=== PATIENT | male | born 1965 | race Caucasian/White ===

== ENCOUNTER 2022-12-20 09:36 | Day surgery (SDC) | payer OTHER, SELFPAY ==
--- NOTE | ~2022-12-20 | FL_ITS ---
PROCEDURE: XR LUMBAR PUNCTURE CLINICAL INFORMATION: Peripheral neuropathy. COMPARISON: None available. TECHNIQUE: Following explaining fluoroscopy-guided lumbar puncture procedure, benefits and risk, a written consent was obtained. Patient was placed prone on fluoroscopy table and an optimal site was selected and marked on the skin. The marked area was cleaned and draped with 2% chlorhexidine solution. 1% lidocaine was injected at puncture site. A 22-gauge spinal needle was then inserted from the skin intrathecally at the L4-L5 disc level. After observing fluid return, patient was quickly placed in left lateral decubitus view and opening CSF pressure was obtained. Subsequently approximately 9 mL clear CSF fluid was withdrawn. Postprocedure needle was withdrawn and complete hemostasis achieved at puncture site. Patient tolerated procedure extremely well. FINDINGS: On AP view of lumbar spine there is loss of disc height virtually at every disc level. The vertebral heights and alignment are maintained on the AP view. The opening CSF pressure measured 11 cm water. Approximately 9 mL of clear CSF fluid was collected in 4 test tubes and sent to lab as per referring physician's orders. FLUOROSCOPY TIME: 0.4 minutes DOSE AREA PRODUCT: 6.302 uGy-m2 (microgray-meter squared) FL/FL guided lumbar puncture LP IMPRESSION: Successful fluoroscopy-guided lumbar puncture performed.
[2022-12-20 09:40] VITALS: BMI 37.0
[2022-12-20 10:04] LABS: Basophils Absolute Auto 0.2 X10*3/uL (0.0-0.2); Basophils Percent Auto 1.5 % (0-2); Eosinophils Absolute Auto 0.3 X10*3/uL (0.0-0.4); Eosinophils Percent Auto 2.6 % (0-4); Hematocrit 37.2 % (42.0-52.0); Hemoglobin 12.3 g/dl (14.0-18.0); Imm Gran Abs Auto 0.04 X10*3/uL (0.00-0.03); Imm Gran Pct Auto 0.4 % (0.0-0.4); Lymphocytes Absolute Auto 1.9 X10*3/uL (1.2-4.9); Lymphocytes Percent Auto 17.1 % (20-40); MANUAL DIFF FLAG SCAN; Mean Corpuscular HGB Conc 33.1 g/dl (31.0-36.0); Mean Corpuscular Hemoglobin 30.1 pg (27.0-33.0); Mean Platelet Volume 10.1 fL (9.4-12.4); Monocytes Absolute Auto 1.5 X10*3/uL (0.1-1.2); Monocytes Percent Auto 13.7 % (2-11); Neutrophils Absolute Auto 7.3 x10*3/uL (2.0-8.3); Neutrophils Percent Auto 64.7 % (45-73); Platelet Count 314 X10*3/uL (160-400); Red Blood Count 4.09 X10*6/uL (4.60-5.80); Red Cell Distribution Width 14.6 % (11.0-16.0); SCAN SMEAR FLAG 1; White Blood Count 11.3 X10*3/uL (4.8-10.8)
[2022-12-20 10:07] LABS: INTERNATIONAL NORM RATIO 0.9 (0.9-1.1); Prothrombin Time 10.3 SEC (10.0-13.1)
[2022-12-20 10:10] LABS: Partial Thromboplastin Time 30.4 SEC (26.0-36.4)
[2022-12-20 10:24] LABS: SLIDE REVIEW VERIFIED
[2022-12-20 11:45] VITALS: BP 143/77; PULSE 80; RESP 18; TEMP 36.9; O2SAT 100
[2022-12-20 12:15] VITALS: BP 139/81; PULSE 78; RESP 18; O2SAT 100
[2022-12-20 12:43] LABS: CSF Appearance Clear, Colorless; CSF Tube # 1; Glucose CSF 62 mg/dL; Total Protein CSF 47.3 mg/dL (15-45)
[2022-12-20 12:45] VITALS: BP 143/86; PULSE 70; RESP 18; O2SAT 100
[2022-12-20 13:15] VITALS: BP 150/83; PULSE 72; RESP 18; TEMP 36.9; O2SAT 100
[2022-12-20 13:52] LABS: White Blood Cell CSF 3 MM*3
[2022-12-20 13:53] LABS: Appearance CSF CLEAR; CSF Tube # 4; Color CSF COLORLESS; Red Blood Cell CSF 0 MM*3
[2022-12-20 13:54] LABS: CSF Monos 67 %; Lymphocytes CSF 33 %
[2022-12-22 16:12] LABS: Albumin 3.9 g/dL (3.6-5.1); Albumin, CSF 28.7 mg/dL (8.0-42.0); IgG 848 mg/dL (600-1640); IgG Synthesis Rate 1.5 mg/24 h (-9.9-3.3); IgG, CSF 3.7 mg/dL (0.8-7.7)
== END 2022-12-20 13:30 | disposition home or self-care (01) ==
PROVIDERS: Radiology Diagnostic Radiology; PCP Internal Medicine; Visit Provider Psychiatry & Neurology Neurology
PROC: 009U3ZZ Drainage of Spinal Canal, Percutaneous Approach (ICD-10-PCS; CPT 62270; principal; 2022-12-20 11:00)
DX: G62.9 Polyneuropathy, unspecified (principal); R25.1 Tremor, unspecified; G31.9 Degenerative disease of nervous system, unspecified; G25.81 Restless legs syndrome; G47.33 Obstructive sleep apnea (adult) (pediatric); I10 Essential (primary) hypertension; M19.90 Unspecified osteoarthritis, unspecified site; F10.11 Alcohol abuse, in remission; R20.0 Anesthesia of skin; R53.1 Weakness; Z79.899 Other long term (current) drug therapy
CPT/HCPCS: 36415; 62328; 82042; 82945; 83916; 84157; 85025; 85610; 85730; 87015; 87070; 87205; 89051